=== PATIENT | female | born 1975 | race Caucasian/White ===

== ENCOUNTER 2024-07-21 14:15 | Emergency (ER) | payer OTHER ==
[~2024-07-21] VITALS: Ht 167.6 cm; Wt 73.0 kg
[2024-07-21 14:20] VITALS: TEMP 37; O2SAT 100
[2024-07-21] MEDS ORDERED: ALBU18HF2 IH (16:25)
[2024-07-21] MEDS ORDERED: P50 MT (16:25)
[2024-07-21 19:52] VITALS: BP 119/73; PULSE 93; RESP 17; O2SAT 97
== END 2024-07-21 19:53 | disposition home or self-care (01) ==
LOC: ER 14:15
DX: J45.901 Unspecified asthma with (acute) exacerbation (principal); Z79.899 Other long term (current) drug therapy
CPT/HCPCS: 71045; 99283